=== PATIENT | male | born 1985 | race Caucasian/White ===

== ENCOUNTER 2016-12-11 21:03 | Emergency (ER) | payer OTHER ==
[~2016-12-11] VITALS: Ht 190.5 cm; Wt 93.0 kg
[2016-12-11] MEDS ORDERED: BACTRIM DS TAB1 EACH (21:51)
[2016-12-11] MEDS ORDERED: HYDROCODONE-AP1 EAC6 (21:51)
[2016-12-11] MEDS ORDERED: KEFLEX500 MG PO (21:57)
[2016-12-11 22:16] VITALS: BP 130/77
== END 2016-12-11 22:17 | disposition home or self-care (01) ==
LOC: ER 21:03
DX: L02.416 Cutaneous abscess of left lower limb (principal); F17.210 Nicotine dependence, cigarettes, uncomplicated; F10.99 Alcohol use, unspecified with unspecified alcohol-induced disorder